=== PATIENT | male | born 1960 | race Caucasian/White ===

== ENCOUNTER → 2018-10-18 | Outpatient (CLI) | payer BC | LOC: CAT 07:33 | DX: K52.9 Noninfective gastroenteritis and colitis, unspecified (principal); R19.5 Other fecal abnormalities; D18.09 Hemangioma of other sites; M16.0 Bilateral primary osteoarthritis of hip; M51.36 Other intervertebral disc degeneration, lumbar region ==

== ENCOUNTER → 2020-05-16 | Outpatient (CLI) | payer BC | LOC: LAB 13:57 | PROVIDERS: ATTEND Nurse Practitioner | DX: Z20.828 Contact with and (suspected) exposure to other viral communicable diseases (principal) ==